=== PATIENT | male | born 2005 | race Caucasian/White ===

== ENCOUNTER 2024-06-14 14:36 | Emergency (ER) | payer OTHER ==
[~2024-06-14] VITALS: Ht 175.3 cm; Wt 78.0 kg
[2024-06-14 14:40] VITALS: O2SAT 100
[2024-06-14] MEDS ORDERED: HYDROCODONE/ACETAMINOPHEN 5/325MG TABLET PO STA (17:08)
[2024-06-14] MEDS: HYDROCODONE/ACETAMINOPHEN 5/325MG TABLET PO NR (18:53)
[2024-06-14] MEDS ORDERED: NAPR-681 PO (20:20)
[2024-06-14] MEDS ORDERED: HYDR-4001 MT (20:20)
[2024-06-14 20:33] VITALS: TEMP 36.83628; O2SAT 100
[2024-06-14 20:34] VITALS: BP 124/68; PULSE 88; RESP 18
== END 2024-06-14 20:32 | disposition home or self-care (01) ==
LOC: ER 14:36
DX: S82.832A Other fracture of upper and lower end of left fibula, initial encounter for closed fracture (principal); M25.552 Pain in left hip; Y93.55 Activity, bike riding; V89.2XXA Person injured in unspecified motor-vehicle accident, traffic, initial encounter; Y92.89 Other specified places as the place of occurrence of the external cause; Y99.8 Other external cause status
CPT/HCPCS: 73610; 74176; 99284